=== PATIENT | female | born 1965 | race Caucasian/White ===

== ENCOUNTER 2021-08-23 06:15 | Inpatient (IN) | payer MEDICAID ==
[2021-08-18 12:02] LABS: EOSINOPHILS # (AUTO) 0.1 X10'3 (0-0.9); MONOCYTES # (AUTO) 0.4 X10'3 (0-0.9); PRE OP HEMOGLOBIN 13.5 g/dL (12.0-16.0)
[2021-08-18 12:03] LABS: BASOPHILS % (AUTO) 0.7 % (0-1); EOSINOPHILS % (AUTO) 1.7 % (0-6); LYMPHOCYTES % (AUTO) 32.7 % (21-51); MEAN CORPUSCULAR HEMOGLOBIN 30.5 PG (27.0-31.0); MEAN CORPUSCULAR HGB CONC 32.8 g/dL (33.0-36.5); MEAN CORPUSCULAR VOLUME 92.9 FL (78-98); MEAN PLATELET VOLUME 7.1 FL (7.4-10.4); MONOCYTES % (AUTO) 6.2 % (2-12); NEUTROPHILS # (AUTO) 3.5 X10'3 (1.8-7.7); NEUTROPHILS % (AUTO) 58.7 % (42-75); PRE OP HEMATOCRIT 41.1 % (35.0-45.0); PRE OP PLATELET COUNT 459 X10'3 (140-440); RED BLOOD COUNT 4.42 X10'6 (4.20-5.60); RED CELL DISTRIBUTION WIDTH 14.2 % (11.5-14.5)
[2021-08-18 12:17] LABS: ALBUMIN 3.9 G/DL (3.4-5.0); ALKALINE PHOSPHATASE 74 IU/L (46-116); BLOOD UREA NITROGEN 12 MG/DL (7-18); CALCIUM 9.6 MG/DL (8.5-10.1); CHLORIDE 104 MMOL/L (99-107); CREATININE 0.86 MG/DL (0.40-0.90); PRE OP ALT 28 U/L (30-65); PRE OP ANION GAP 10 (8-16); PRE OP AST 18 U/L (10-37); PRE OP BILIRUB, TOTAL 0.3 MG/DL (0.0-1.0); PRE OP GLUCOSE 107 MG/DL (70-104); PRE OP POTASSIUM 3.5 MMOL/L (3.4-5.1); PRE OP SODIUM 143 MMOL/L (135-145); TOTAL CARBON DIOXIDE 29.5 MMOL/L (24-32); TOTAL PROTEIN 7.7 G/DL (6.4-8.2); eGFR 68 ML/MIN
[~2021-08-23] VITALS: Ht 160 cm; Wt 67.0 kg
[2021-08-23] VITALS (21 sets, daily range): BP systolic 104–166; BP diastolic 59–109
[~2021-08-23 06:15] MED LIST: ASCO-157 PO; CETI-90 PO; CHOL50004 PO; DICY10CA88 PO; DIPH-186 PO; DULO60CA59 PO; HYDR-3965 PO; IBUP-24 PO; MECL-159 PO; OMEP40CA21 PO; ZINC50TA67 PO; cefazolin/dext.iso 2gm/50ml IV ONE; famotidine 20mg tablet PO ONE; ringers solution, lacted 1,000 ML IV SCH; tranexamic acid 650mg tablet PO ONE; vancomycin/NS 1 GM in NS 250 ML IV ONE
--- NOTE | 2021-08-23 08:30 | NUR ---
PT CSM INTACT TO BILATERAL UPPER EXTREMITIES, PT ABLE TO COMPLETE SHOWERS AND OINTMENT ORDERED.
[2021-08-23] MEDS ORDERED: meperidine/PF 25mg/ml syringe IV ONE (10:00)
[2021-08-23] MEDS ORDERED: LIDOcaine 1% (10mg/ml)w/preservative inj. 20ml MDV ONE (10:05)
[2021-08-23] MEDS ORDERED: sevoflurane 250ml liquid IH ONE (10:05)
[2021-08-23] MEDS ORDERED: midazolam 1 mg/ML 2ml injection ONE (10:16)
[2021-08-23] MEDS ORDERED: fentaNYL/PF 50MCG/1 ML 2ML syringe ONE (10:16)
[2021-08-23] MEDS ORDERED: ROPIVAcaine 0.5% (5mg/ml) 30ml vial ONE (10:37)
[2021-08-23] MEDS ORDERED: propofol inj 20 ML IV ONE (10:37)
[2021-08-23] MEDS ORDERED: dexamethasone sod phosphate 4mg/ml inj. ONE (10:50)
[2021-08-23] MEDS ORDERED: ondansetron/PF 4mg/2ml inj ONE (10:50)
[2021-08-23] MEDS ORDERED: ROPIVAcaine 0.2%/PF PUMP/bolus 545 ML INTERSCALE SCH (11:20)
[2021-08-23] MEDS ORDERED: ROPIVAcaine 0.2% (10 MG/5 ML) BOLUS INJECTION INTERSCALE PRN (11:20)
[2021-08-23] MEDS ORDERED: morphine 4 MG/ML inj SYRINge IV PRN (11:20)
[2021-08-23] MEDS ORDERED: ondansetron/PF 4mg/2ml inj IV PRN ×2 (11:20→12:25)
[2021-08-23] MEDS ORDERED: ringers solution, lacted 1,000 ML IV SCH (11:20)
[2021-08-23] MEDS ORDERED: proCHLORperazine 10 MG/2 ml inj IV PRN (11:20)
[2021-08-23] MEDS ORDERED: meperidine/PF 25mg/ml syringe IV PRN ×3 (11:20)
[2021-08-23] MEDS ORDERED: morphine 2 MG/ML inj. syringe IV PRN (11:20)
[2021-08-23] MEDS ORDERED: ketorolac trometh. 30mg/ml inj. IM ONE (11:30)
[2021-08-23] MEDS ORDERED: ROPIVAcaine 0.5% (5mg/ml) 30ml vial IJ ONE (11:30)
--- NOTE | 2021-08-23 12:09 | NUR ---
Received from OR via HOSPITAL BED, accompanied by Anesthesiologist DR PATEL and report given by Anesthesiolgist. PT PRESNTS WITH PIV 20G RIGHT AC, LEFT SHOULDER WRAP WITH ISLAND DRESSING AND POWDER PACK WITH ON-Q READY. VSS. Addendum: 08/23/21 at 1230 by Jewels Dee RN, RN Amended: Links added.
[2021-08-23] MEDS ORDERED: magnesium hydroxide 30ml (MOM) UD suspension PO PRN (12:25)
[2021-08-23] MEDS ORDERED: bisacodyl 10mg suppository rectal RC PRN (12:25)
[2021-08-23] MEDS ORDERED: acetaminophen 325mg tablet PO PRN (12:25)
[2021-08-23] MEDS ORDERED: ibuprofen 200mg tablet PO PRN (12:25)
[2021-08-23] MEDS ORDERED: diphenhydrAMINE 25mg capsule PO PRN ×2 (12:25)
[2021-08-23] MEDS ORDERED: naloxone 0.4 mg/ml inj IV PRN (12:25)
[2021-08-23] MEDS: potassium cl 20mEq in 1/2 NS 1,000 ML IV SCH ×2 (12:25→23:35)
[2021-08-23] MEDS ORDERED: diphenoxylate/atropine tablet (Lomotil) PO PRN (13:00)
--- NOTE | 2021-08-23 13:37 | NUR ---
Patient in room PAS IN 901. I have received report from Jewels BANGURA and had the opportunity to ask questions and assume patient care.
--- NOTE | 2021-08-23 13:49 | NUR ---
Report called to receiving nurse. Transferred via HOSPITAL BED TO ROOM [facility], BY OR PAVING BLOCK CUTTER. PT SENT TO FLOOR WITH ONE PT Belongings BAG. Special Issues communicated to receiving nurse. Addendum: 08/23/21 at 1402 by Jewels Dee RN RN Amended: Links added.
[2021-08-23] MEDS: ceFAZolin/D5W- 1GM premix 50 ML IV SCH ×2 (17:11→23:35)
[2021-08-23] MEDS: acetaminophen 325mg tablet PO SCH ×2 (17:12→19:05)
[2021-08-23] MEDS ORDERED: vancomycin/NS 1 GM ADD-VANTAGE 250 ML IV SCH (20:00)
[2021-08-23] MEDS ORDERED: HYDROcodone/acetaminophen 10/325mg tab PO PRN (20:45)
[2021-08-23] MEDS ORDERED: HYDROcodone/acetaminophen 5mg/325mg tablet PO PRN (20:45)
[2021-08-23] MEDS ORDERED: sennosides 8.6mg tablet PO SCH (21:00)
[2021-08-23] MEDS ORDERED: pantoprazole 40mg Tablet.DR PO SCH (21:00)
[2021-08-24 01:56] VITALS: BP 121/77
[2021-08-24] MEDS: acetaminophen 325mg tablet PO SCH ×2 (02:00→09:05)
[2021-08-24] MEDS: potassium cl 20mEq in 1/2 NS 1,000 ML IV SCH (04:25)
[2021-08-24 06:00] VITALS: BP 116/65
--- NOTE | 2021-08-24 06:25 | NUR ---
Report given to Viry BANGURA.
[2021-08-24 06:30] LABS: BASOPHILS # (AUTO) 0.1 X10'3 (0-0.2); BASOPHILS % (AUTO) 0.7 % (0-1); EOSINOPHILS % (AUTO) 0 % (0-6); HEMATOCRIT 36.9 % (35.0-45.0); LYMPHOCYTES # (AUTO) 0.9 X10'3 (1.1-4.8); LYMPHOCYTES % (AUTO) 6.7 % (21-51); MEAN CORPUSCULAR HEMOGLOBIN 30.2 PG (27.0-31.0); MEAN CORPUSCULAR HGB CONC 32.5 g/dL (33.0-36.5); MEAN PLATELET VOLUME 7.8 FL (7.4-10.4); MONOCYTES # (AUTO) 1.2 X10'3 (0-0.9); MONOCYTES % (AUTO) 8.8 % (2-12); NEUTROPHILS # (AUTO) 11.4 X10'3 (1.8-7.7); NEUTROPHILS % (AUTO) 83.8 % (42-75); PLATELET COUNT 392 X10'3 (140-440); RED BLOOD COUNT 3.97 X10'6 (4.20-5.60); RED CELL DISTRIBUTION WIDTH 14.5 % (11.5-14.5); WHITE BLOOD COUNT 13.6 X10'3 (4.5-11.0)
[2021-08-24 06:37] LABS: ANION GAP 11 (8-16); CHLORIDE 107 MMOL/L (99-107); SODIUM 143 MMOL/L (135-145); TOTAL CARBON DIOXIDE 24.9 MMOL/L (24-32)
[2021-08-24] MEDS ORDERED: cholecalciferol (vitamin D3) 1,000 unit (25mcg) tablet PO SCH (08:00)
[2021-08-24] MEDS ORDERED: ascorbic acid 500mg tablet PO SCH (08:00)
[2021-08-24] MEDS ORDERED: cetirizine 10mg tablet PO SCH (08:00)
[2021-08-24] MEDS ORDERED: meclizine 12.5mg tablet PO PRN (08:00)
[2021-08-24] MEDS ORDERED: aspirin 325mg tablet PO SCH (08:30)
[2021-08-24 10:00] VITALS: BP 97/57
--- NOTE | 2021-08-24 11:52 | NUR ---
Joint surgery consult: Pt s/p L shoulder surgery this admit per EMR. Pt/SO seen by VICKEY for written/verbal high protein diet ed w/ RD contact information provided. RD encouraged pt to contact dietitian's office if further questions/concerns. Pt reports tomato/avocado allergies; dietary notified. Addendum: 08/24/21 at [address] Amended: Links added.
[2021-08-24] MEDS ORDERED: celeCOXIB 100mg capsule PO SCH (20:00)
[2021-08-25] MEDS ORDERED: acetaminophen 325mg tablet PO PRN (12:25)
== END 2021-08-24 13:30 | disposition home or self-care (01) | DRG 322 ==
LOC: PAS IN 06:15 → ORTHO 4S 13:50
PROVIDERS: ADMIT Orthopaedic Surgery; ATTEND Orthopaedic Surgery
PROC: 0LS40ZZ Reposition Left Upper Arm Tendon, Open Approach (ICD-10-PCS; 2021-08-23)
PROC: 3E0T3BZ Introduction of Anesthetic Agent into Peripheral Nerves and Plexi, Percutaneous Approach (ICD-10-PCS; 2021-08-23)
PROC: 3E0T33Z Introduction of Anti-inflammatory into Peripheral Nerves and Plexi, Percutaneous Approach (ICD-10-PCS; 2021-08-23)
PROC: 0RRK00Z Replacement of Left Shoulder Joint with Reverse Ball and Socket Synthetic Substitute, Open Approach (ICD-10-PCS; principal; 2021-08-23 10:05)
DX: M19.012 Primary osteoarthritis, left shoulder (principal); E78.5 Hyperlipidemia, unspecified; M75.42 Impingement syndrome of left shoulder; K21.9 Gastro-esophageal reflux disease without esophagitis; M75.122 Complete rotator cuff tear or rupture of left shoulder, not specified as traumatic; M65.812 Other synovitis and tenosynovitis, left shoulder; Z88.8 Allergy status to other drugs, medicaments and biological substances
CPT/HCPCS: 36415; 80051; 80053; 82948; 85025; 87081; 97110; 97161; 97530; A4565; A4618; A7000; C1776; G0378; J0690; J1100; J1885; J2250; J2405; J2704; J2795; J3010; J3370; J3480; J3490; J7120; U0003; U0005